=== PATIENT | female | born 1935 | race Caucasian/White ===

== ENCOUNTER → 2017-05-08 | Outpatient (CLI) | payer MEDICARE ==
[~2017-05-08] MED LIST: ALEN70TA5 PO; AMIO200T42 PO; APIX5TAB PO; BUME0.5T PO; BUME2TAB PO; DIGO125T PO; DIGO250T PO; FLUO10TA PO; FLUT15.88 NAS; FLUTICASONE EACHEYE; GABA-826 PO; GABA300C10 PO; LATA2.5D3 EACHEYE; LEVO100T5 PO; LOVA20TA2 PO; METF500T4 PO; METO-264 PO; METO-95 PO; METO25TA4 PO; METO50TA82 PO; POTA10TA11 PO; RIVA3CAP4 PO; TRAZ100T15 PO; WARF-36 PO
== END | disposition home or self-care (01) ==
LOC: CFH 11:40
PROVIDERS: ATTEND Internal Medicine Cardiovascular Disease
DX: I48.2 Chronic atrial fibrillation (principal); E78.2 Mixed hyperlipidemia; Z95.0 Presence of cardiac pacemaker
CPT/HCPCS: 71046

== ENCOUNTER → 2017-05-16 | Outpatient (CLI) | payer MEDICARE | END | disposition home or self-care (01) | LOC: CVU 07:10 | PROVIDERS: ATTEND Internal Medicine Cardiovascular Disease | DX: I35.1 Nonrheumatic aortic (valve) insufficiency (principal); I48.2 Chronic atrial fibrillation; E11.9 Type 2 diabetes mellitus without complications; Z95.0 Presence of cardiac pacemaker | CPT/HCPCS: 93306 ==

== ENCOUNTER → 2018-05-18 | Outpatient (CLI) | payer MEDICARE ==
[~2018-05-18] MED LIST changes: -ALEN70TA5 PO; +ALEN70TA6 PO; +METF500T17 PO; -METF500T4 PO; +TRAZ-137 PO; -TRAZ100T15 PO
== END | disposition home or self-care (01) ==
LOC: CFH 13:50
PROVIDERS: ATTEND Nurse Practitioner Family
DX: I48.2 Chronic atrial fibrillation (principal); I10 Essential (primary) hypertension; Z95.0 Presence of cardiac pacemaker
CPT/HCPCS: 71046

== ENCOUNTER → 2019-02-11 | Outpatient (CLI) | payer MEDICARE ==
[~2019-02-11] MED LIST changes: -BUME0.5T PO; +BUME0.5T2 PO; -BUME2TAB PO; +BUME2TAB3 PO; +FLUT15.845 NAS; -FLUT15.88 NAS
== END | disposition home or self-care (01) ==
LOC: CFH 10:45
PROVIDERS: ATTEND Internal Medicine Cardiovascular Disease
DX: I35.1 Nonrheumatic aortic (valve) insufficiency (principal); I42.9 Cardiomyopathy, unspecified; I10 Essential (primary) hypertension; E78.5 Hyperlipidemia, unspecified; E11.9 Type 2 diabetes mellitus without complications; Z95.0 Presence of cardiac pacemaker; Z87.891 Personal history of nicotine dependence; Z79.01 Long term (current) use of anticoagulants
CPT/HCPCS: 93306

== ENCOUNTER 2019-06-06 09:19 | Outpatient (CLI) | payer MEDICARE ==
[~2019-06-06 09:19] MED LIST changes: -DIGO125T PO; +DIGO125T85 PO; -DIGO250T PO; +DIGO250T3 PO; -TRAZ-137 PO; +TRAZ-175 PO
== END 2019-06-06 23:59 | disposition home or self-care (01) ==
LOC: CFH 09:19
PROVIDERS: ATTEND Nurse Practitioner Family
DX: Z02.9 Encounter for administrative examinations, unspecified (principal)

== ENCOUNTER → 2019-11-19 | Outpatient (CLI) | payer MEDICARE ==
[~2019-11-19] MED LIST changes: +REGADENOSON 0.4 MG/5 ML SYRINGE ONE; +RIVA3CAP15 PO; -RIVA3CAP4 PO
== END | disposition home or self-care (01) ==
LOC: CFH 08:19
PROVIDERS: ATTEND Internal Medicine Cardiovascular Disease
DX: I42.9 Cardiomyopathy, unspecified (principal)
CPT/HCPCS: 78452; 93017; A9502; J2785

== ENCOUNTER 2020-08-06 07:23 | Emergency (ER) | payer MEDICARE ==
[~2020-08-06] VITALS: Ht 174 cm; Wt 81.9 kg
[~2020-08-06 07:23] MED LIST changes: -ALEN70TA6 PO; +ALEN70TA77 PO; -LATA2.5D3 EACHEYE; +LATA2.5D4 EACHEYE; -REGADENOSON 0.4 MG/5 ML SYRINGE ONE
[2020-08-06 07:33] VITALS: BP 135/105
--- NOTE | 2020-08-06 08:15 | NUR ---
Pt put on 2L nc for spo2 of 87%. Pt spo2 now at 93%.
[2020-08-06] MEDS ORDERED: HYDROmorphone 1 MG/ML, 1ML INJ ONE (08:16)
[2020-08-06] MEDS ORDERED: HYDROmorphone 1 MG/ML, 1ML INJ IM ONE (08:30)
--- NOTE | 2020-08-06 08:41 | NUR ---
WENT OVER PLAN OF CARE FROM ORDER LIST, AGREES TO PLAN
--- NOTE | 2020-08-06 08:41 | NUR ---
LEFT FACIAL SWELLING X6 DAYS, HAS GOTTEN PROGRESSIVELY WORSE. REPORTS DIFFICULTY SWALLOWING BECAUSE OF SWELLING. PT IN BED IN GOWN WITH CONT SPO2, BPQ 30 MIN.
[2020-08-06 08:43] LABS: BASOPHILS % (AUTO) 0 % (0-1); EOSINOPHILS % (AUTO) 4 % (1-7); LYMPHOCYTES % (AUTO) 7 % (22-44); MEAN CORPUSCULAR HGB CONC 33.7 g/dL (32.4-35.8); MEAN PLATELET VOLUME 7.3 fL (7.4-10.4); MONOCYTES % (AUTO) 8 % (2-9); NEUTROPHILS % (AUTO) 80 % (42-75); PLATELET COUNT 269 x10^3/uL (130-400); RED BLOOD COUNT 4.38 x10^6/uL (3.82-5.3); RED CELL DISTRIBUTION WIDTH 14.6 % (9.6-15.2)
[2020-08-06 08:49] LABS: ALBUMIN 2.5 g/dL (3.4-5.0); ANION GAP 7 mmol/L (5-15); CALCIUM 8.9 mg/dL (8.5-10.1); CHLORIDE 105 mmol/L (98-107); CREATININE 1.23 mg/dL (0.55-1.02)
--- NOTE | 2020-08-06 09:09 | NUR ---
PT BACK FROM CT
[2020-08-06] MEDS ORDERED: OMNIPAQUE 350 MG/ML, 100ML BOTTLE ONE (09:29)
--- NOTE | 2020-08-06 12:47 | NUR ---
Patient/Caregiver given discharge instructions and they have confirmed that they understand the instructions. Patient ambulatory with steady gait. NAD, all questions answered appropriately, denies additional needs at this time. No personal belongings left in room after discharge.
== END 2020-08-06 12:48 | disposition home or self-care (01) ==
LOC: ED 07:48
DX: K11.5 Sialolithiasis (principal); M54.2 Cervicalgia; I11.0 Hypertensive heart disease with heart failure; I50.9 Heart failure, unspecified; I48.91 Unspecified atrial fibrillation; E03.9 Hypothyroidism, unspecified; Z90.710 Acquired absence of both cervix and uterus
CPT/HCPCS: 36415; 70487; 70491; 80048; 82040; 85025; 86308; 96372; 99285; J1170; Q9967